=== PATIENT | female | born 1985 | race Two or more races ===

== ENCOUNTER 2021-04-22 12:02 | Emergency (ER) | payer OTHER ==
[~2021-04-22] VITALS: Ht 172.7 cm; Wt 76.8 kg
[2021-04-22 12:07] VITALS: BP 103/73
== END 2021-04-22 12:23 | disposition left against medical advice (07) ==
LOC: EMS 12:23
DX: O26.899 Other specified pregnancy related conditions, unspecified trimester (principal); Z53.21 Procedure and treatment not carried out due to patient leaving prior to being seen by health care provider